=== PATIENT | male | born 1985 | race Two or more races ===

== ENCOUNTER 2017-02-18 16:51 | Emergency (ER) | payer SELFPAY ==
[~2017-02-18] VITALS: Ht 172.7 cm; Wt 65.8 kg
[2017-02-18 16:51] VITALS: BP 126/82
--- NOTE | 2017-02-18 21:18 | NUR ---
PATIENT TO ER BED
== END 2017-02-18 21:45 | disposition home or self-care (01) ==
LOC: ER 16:55
DX: K92.0 Hematemesis (principal); F10.20 Alcohol dependence, uncomplicated
CPT/HCPCS: 99283; A4606; Z7610